=== PATIENT | female | born 1970 | race Caucasian/White ===

== ENCOUNTER 2021-04-18 04:25 | Day surgery (SDC) | payer OTHER ==
[2021-04-16 15:56] VITALS: BMI 25.7
[2021-04-18] MEDS ORDERED: ACETAMINOPHEN 325 MG TABLET (FP) PO PRN (10:08)
[2021-04-18] MEDS ORDERED: IBUPROFEN 400 MG TABLET (FP) PO PRN (10:08)
[2021-04-18] MEDS ORDERED: oxyCODONE HCL 5 MG TABLET PO PRN (10:08)
[2021-04-18] MEDS ORDERED: ONDANSETRON 4 MG/2 ML VIAL IVPUSH PRN (10:09)
[2021-04-18] MEDS ORDERED: MIDAZOLAM HCL 2 MG/2 ML SINGLE DOSE VIAL ONE (11:00)
[2021-04-18] MEDS ORDERED: PROPOFOL 20 ML ONE (11:01)
[2021-04-18] MEDS ORDERED: PROMETHAZINE HCL 25 MG/1 ML VIAL IVPB PRN (11:15)
[2021-04-18] MEDS ORDERED: LACTATED RINGERS SOLUTION 1,000 ML IV SCH (11:15)
[2021-04-18 15:22] VITALS: BP 109/56; PULSE 58; TEMP 98
== END 2021-04-18 14:05 | disposition home or self-care (01) ==
LOC: JASU-SURG 04:25
PROVIDERS: ATTEND Obstetrics & Gynecology
PROC: 0UDB7ZX Extraction of Endometrium, Via Natural or Artificial Opening, Diagnostic (ICD-10-PCS; principal; 2021-04-18 10:00)
PROC: 0UJD8ZZ Inspection of Uterus and Cervix, Via Natural or Artificial Opening Endoscopic (ICD-10-PCS; 2021-04-18 10:00)
DX: N92.0 Excessive and frequent menstruation with regular cycle (principal); N93.9 Abnormal uterine and vaginal bleeding, unspecified
CPT/HCPCS: 36415; 84703; 86850; 86900; 86901; 94760

== ENCOUNTER 2021-07-23 04:59 | Day surgery (SDC) | payer OTHER ==
[2021-07-19 16:30] VITALS: BMI 26.6
[2021-07-23] MEDS ORDERED: MIDAZOLAM HCL 2 MG/2 ML SINGLE DOSE VIAL ONE (08:58)
[2021-07-23] MEDS ORDERED: PROPOFOL 20 ML ONE ×2 (08:58→09:41)
[2021-07-23] MEDS ORDERED: IBUPROFEN 400 MG TABLET (FP) PO PRN (09:10)
[2021-07-23] MEDS ORDERED: ACETAMINOPHEN 325 MG TABLET (FP) PO PRN (09:10)
[2021-07-23] MEDS ORDERED: ceFAZolin SODIUM 1 GM VIAL IVPB ONE (09:30)
[2021-07-23] MEDS ORDERED: oxyCODONE HCL 5 MG TABLET PO PRN ×2 (09:43)
[2021-07-23] MEDS ORDERED: ONDANSETRON 4 MG/2 ML VIAL IVPUSH PRN (09:43)
[2021-07-23] MEDS ORDERED: LACTATED RINGERS SOLUTION 1,000 ML IV SCH (09:45)
[2021-07-23] MEDS ORDERED: ACETAMINOPHEN 325 MG TABLET (FP) ONE (11:26)
[2021-07-23] MEDS ORDERED: ACETAMINOPHEN 325 MG TABLET (FP) PO ONE (11:30)
[2021-07-23 12:28] VITALS: BP 105/68; PULSE 55; TEMP 97.3
== END 2021-07-23 12:29 | disposition home or self-care (01) ==
LOC: JASU-SURG 04:59
PROVIDERS: ATTEND Obstetrics & Gynecology
PROC: 0U5B8ZZ Destruction of Endometrium, Via Natural or Artificial Opening Endoscopic (ICD-10-PCS; principal; 2021-07-23 09:00)
DX: N92.0 Excessive and frequent menstruation with regular cycle (principal); N94.6 Dysmenorrhea, unspecified; N80.0 Endometriosis of uterus
CPT/HCPCS: 81025; 94760

== ENCOUNTER 2022-01-18 19:00 | Observation (INO) | payer OTHER ==
[2022-01-18] MEDS ORDERED: SODIUM CHLORIDE 1,000 ML IV SCH (20:00)
[2022-01-18 20:40] LABS: BASO % 0.6 % (0-2.0); EOS % 1.1 % (0-4.5); HEMOGLOBIN 14.9 GM/dL (10.7-15.3); LYMPH % 24.7 % (8-40); MCH 32.1 pg (25.7-33.7); MCHC 33.8 g/dl (32.0-36.0); MEAN CELL VOLUME 94.8 fl (80-96); MEAN PLT VOLUME 10.3 fl (7.5-11.1); MONO % 11.5 % (3.8-10.2); NEUT % 62.1 % (42.8-82.8); PLATELET COUNT 153 10^3/uL (134-434); RBC 4.64 M/mm3 (3.60-5.2); RDW 13.6 % (11.6-15.6); WHITE BLOOD COUNT 7.8 K/mm3 (4.0-10.0)
[2022-01-18] MEDS ORDERED: METOCLOPRAMIDE HCL INJECTION 10 MG/2 ML VIAL IVPUSH ONE (20:43)
[2022-01-18] MEDS ORDERED: METOCLOPRAMIDE HCL INJECTION 10 MG/2 ML VIAL ONE (20:51)
[2022-01-18 20:55] LABS: INR 0.88 (0.83-1.09); PROTHROMBIN TIME (PATIENT) 10.1 SEC (9.7-13.0)
[2022-01-18 20:56] LABS: BLOOD UREA NITROGEN 12.9 mg/dL (7-18); CALCIUM 9.1 mg/dL (8.5-10.1)
[2022-01-18 20:58] LABS: ACTIVATED PTT 34.9 SECONDS (25.2-36.5)
[2022-01-18 20:59] LABS: CREATININE 0.8 mg/dL (0.55-1.3)
[2022-01-18] MEDS ORDERED: ASPIRIN 325 MG TABLET PO ONE (21:00)
[2022-01-18 21:01] LABS: BILIRUBIN,TOTAL 0.4 mg/dL (0.2-1); TOT PROT 7.6 g/dl (6.4-8.2)
[2022-01-18] MEDS ORDERED: ASPIRIN 325 MG TABLET ONE (21:38)
[2022-01-19 01:41] VITALS: BMI 29.4
[2022-01-19 02:58] LABS: EPI CELLS 32 /uL (0-25.1); HYALINE CASTS 0 /uL (0-3.1); PH,URINE 6.5 (5.0-8.0); URINE APPEARANCE CLEAR; URINE BACTERIA 115 /uL (0-1359); URINE BILIRUBIN NEGATIVE (NEGATIVE); URINE COLOR YELLOW; URINE GLUCOSE (UA) NEGATIVE (NEGATIVE); URINE KETONE NEGATIVE (NEGATIVE); URINE LEUK ESTERASE NEGATIVE (NEGATIVE); URINE NITRITE NEGATIVE (NEGATIVE); URINE PROTEIN NEGATIVE (NEGATIVE); URINE RBC 12 /uL (0-23.9); URINE UROBILINOGEN 0.2 mg/dL (0.2-1.0); URINE WBC 4 /uL (0-25.8)
[2022-01-19] MEDS ORDERED: ALBUTEROL SO4 HFA INHALER IH PRN ×2 (07:14→07:16)
[2022-01-19] MEDS ORDERED: SUMATRIPTAN 20 MG NS SCH (07:15)
[2022-01-19] MEDS ORDERED: SUMATRIPTAN 20 MG PO PRN (07:17)
[2022-01-19] MEDS ORDERED: SUMAtriptan SUCCINATE 25 MG TABLET PO PRN (11:46)
[2022-01-19] MEDS ORDERED: IBUPROFEN 400 MG TABLET (FP) PO ONE (22:30)
[2022-01-20 09:32] VITALS: BP 107/59; PULSE 78; TEMP 98
[2022-01-20] MEDS ORDERED: TOPIRAMATE 25 MG TABLET PO SCH (10:45)
== END 2022-01-20 12:00 | disposition home or self-care (01) ==
LOC: JER 19:00 → JERBED 20:40 → J4W 01-19 01:26
PROVIDERS: ADMIT Internal Medicine; ATTEND Internal Medicine
PROC: 3E033GC Introduction of Other Therapeutic Substance into Peripheral Vein, Percutaneous Approach (ICD-10-PCS; principal; 2022-01-18)
PROC: 3E0337Z Introduction of Electrolytic and Water Balance Substance into Peripheral Vein, Percutaneous Approach (ICD-10-PCS; 2022-01-18)
DX: G43.109 Migraine with aura, not intractable, without status migrainosus (principal); G51.0 Bell's palsy; J45.909 Unspecified asthma, uncomplicated; R20.0 Anesthesia of skin; R20.2 Paresthesia of skin; Z88.6 Allergy status to analgesic agent
CPT/HCPCS: 36415; 70450-TC; 70551-TC; 80053; 80061; 81003; 82550; 83036; 84484; 85025; 85610; 85730; 86850; 86900; 86901; 93005; 93010; 99285-25; C9803-CS; G0378; U0003; U0005